=== PATIENT | female | born 1995 | race Two or more races ===

== ENCOUNTER 2024-01-15 04:36 | Emergency (ER) | payer OTHER ==
[~2024-01-15] VITALS: Ht 157.5 cm; Wt 66.4 kg
[2024-01-15 04:45] VITALS: BP 108/71; PULSE 97; RESP 16; O2SAT 97
--- NOTE | 2024-01-15 05:14 | ED.PDOC ---
History of Present Illness HPI Comments 28 y/o F presents with c/o abnormal vaginal bleeding, today. Patient reports having mild and light bleeding s/p giving , recently, to her second child ([id number]) 10 days ago and having sudden onset of worsening bleeding w/clot production, this morning, while attempting to use her bathroom. Patient comments on aforementioned second being without complications, unlike her first w/some hemorrhaging. Patient comments on no recent stress, injuries, sick contact, sexual activity, or substance use/exposure. Patient informs on not consulting her CLIENT EXECUTIVE, yet, due to him/her being out of the area and is still in the process of obtaining a new provider that is more local. Patient denies having any abdominal pain, nausea, vomiting, urinary symptoms, fever, chills, or other associated symptoms or modifiers at this time. Chief Complaint: Vaginal Bleed Time Seen by MD: 04:50 Reviewed Notes: Nurses Notes, Medications, Allergies Allergies: Coded Allergies: Cephalexin (Verified Allergy, Unknown, 01/15/24) Information Source: Patient Mode of Arrival: Ambulatory Severity: Moderate Timing: Hours Duration: Since onset Prehospital treatment: None Past Medical History PAST MEDICAL HISTORY: Denies Surgical History: Denies all surgeries CORE BAKER History: Denies all CORE BAKER Hx 2 Para 1 AB 0 Family History Family History: Unknown Social History Smoker: Non-Smoker Alcohol: Denies ETOH Use Drugs: Denies Drug Use Lives In: Home Constitutional: denies: chills, diaphoresis, fatigue, fever, malaise, sweats, weakness, others EENTM: denies: blurred vision, double vision, ear bleeding, ear discharge, ear drainage, ear pain, ear ringing, eye pain, eye redness, hearing loss, mouth pain, mouth swelling, nasal discharge, nose bleeding, nose congestion, nose pain, photophobia, tearing, throat pain, throat swelling, voice changes, others Respiratory: denies: cough, hemoptysis, orthopnea, SOB at rest, shortness of breath, SOB with excertion, stridor, wheezing, others Cardiovascular: denies: chest pain, dizzy spells, diaphoresis, Dyspnea on exertion, edema, irregular heart beat, left arm pain, lightheadedness, palpitations, PND, syncope, others Gastrointestinal: denies: abdomen distended, abdominal pain, blood streaked bowels, constipated, diarrhea, dysphagia, difficulty swallowing, hematemesis, melena, nausea, poor appetite, poor fluid intake, rectal bleeding, rectal pain, vomiting, others Genitourinary: reports: abnormal vagina bleeding; denies: burning, dyspareunia, dysuria, flank pain, frequency, hematuria, incontinence, pain, , vagina discharge, urgency, others Neurological: denies: dizziness, fainting, headache, left sided numbness, left sided weakness, numbness, paresthesia, pre-existing deficit, right sided numbness, right sided weakness, seizure, speech problems, tingling, tremors, weakness, others Musculoskeletal: denies: back pain, gout, joint pain, joint swelling, muscle pain, muscle stiffness, neck pain, others Integumetry: denies: bruises, change in color, change in hair/nails, dryness, laceration, lesions, lumps, rash, wounds, others Allergic/Immunocompromised: denies: Difficulty Healing, Frequent Infections, Hives, Itching, others Hematologic/Lymphatic: denies: anemia, blood clots, easy bleeding, easy bruising, swollen glands, others Endocrine: denies: excessive hunger, excessive sweating, excessive thirst, excessive urination, flushing, intolerance to cold, intolerance to heat, unexplained weight gain, unexplained weight loss, others Psychiatric: denies: anxiety, bipolar disorder, depression, hopeless, panic disorder, schizophrenia, sleepless, suicidal, others All Other Systems: Reviewed and Negative Physical Exam General Appearance: No Apparent Distress, Normal HEENT: Normal ENT Inspection, Pharynx Normal, TMs Normal Neck: Full Range of Motion, Non-Tender, Normal, Normal Inspection Respiratory: Chest Non-Tender, Lungs Clear, No Accessory Muscle Use, No Respiratory Distress, Normal Breath Sounds Cardiovascular: No Edema, No JVD, No Murmur, No Gallop, Normal Peripheral Pulses, Regular Rate/Rhythm Breast Exam: Deferred Gastrointestinal: No Organomegaly, Non Tender, No Pulsatile Mass, Normal Bowel Sounds, Soft Genitalia: Deferred Pelvic: Deferred Rectal: Deferred Extremities: No calf tenderness, Normal capillary refill, Normal inspection, Normal range of motion, Non-tender, No pedal edema Musculoskeletal : Apperance: Normal Neurologic: Alert, paper sorter and counter II-XII nml as Tested, No Motor Deficits, Normal Affect, Normal Mood, No Sensory Deficits Cerebellar Function: Normal Reflexes: Normal Skin: Dry, Normal Color, Warm Lymphatic: No Adenopathy Was a procedure done? Was a procedure done?: No Differential Dx Considerations may include: hemorrhage, retained products of conception, menstrual period, menorrhagia, menometrorrhagia X-Ray, Labs, Meds, VS Vital Signs Date Time Temp Pulse Resp B/P (MAP) Pulse Ox O2 Delivery O2 Flow Rate FiO2 01/15/24 04:45 98.7 97 16 108/71 (83) 97 Time of 1ST Reevaluation: 05:20 Reevaluation 1ST: Unchanged Patient Education/Counseling: Diagnosis, Treatment Family Education/Counseling: No Family Present Departure 1 Departure Time of Disposition: 18:13 (Patient with vaginal bleeding s/p delivery. Awaiting ultrasound. ) Impression: Primary Impression: Vaginal bleeding Disposition: 07 LEFT AWOL/ELOPED Condition: Serious Critical Care Note Critical Care Time?: No Stability Stability form required: No Heart Score Heart Score: Heart Score Response (Comments) Value History N/A 0 EKG N/A 0 Age N/A 0 Risk Factors N/A 0 Troponin N/A 0 Total 0 I personally scribed for SUE GARCIA MD ([email or web address]) on 01/15/24 at 05:14. Electronically submitted by Bruce Reed [email or web address]). SUE GARCIA MD Jan 15, 2024 05:14
== END 2024-01-15 08:32 | disposition left against medical advice (07) ==
LOC: ER 04:36
DX: N93.9 Abnormal uterine and vaginal bleeding, unspecified (principal); Z88.1 Allergy status to other antibiotic agents